=== PATIENT | male | born 1985 | race Hispanic/Latino ===

== ENCOUNTER 2024-03-05 14:07 | Emergency (ER) | payer BC, SELFPAY ==
--- NOTE | ~2024-03-05 | CT_ITS ---
History: Left-sided facial droop, progressing over the last 2 days PROCEDURE: CT head without contrast. COMPARISON: None TECHNIQUE: Axial imaging of the head performed from the skull base to the vertex without IV contrast. Sagittal a nd coronal reformations obtained. DLP: 605 mGy-cm FINDINGS: The ventricles are normal in size, shape and position. There is no mass, mass effect or midline shift. There is no abnormal extra-axial fluid collection or intracranial hemorrhage. Visualized paranasal sinuses are clear. The mastoid air cells are well aerated. No acute displaced fractures within the overlying cranium. Impression: No acute intracranial hemorrhage or suspicious mass effect. Reviewed, dictated and finalized at location A. RACT PREPARER Impression: No acute intracranial hemorrhage or suspicious mass effect.
[2024-03-05 14:15] VITALS: BP 142/88; PULSE 91; RESP 17; TEMP 36.4; O2SAT 98
--- NOTE | 2024-03-05 14:26 | ECG_ITS ---
Test Date: 2024-03-05 18:54:46 Measurements Intervals [place] Rate: 70 P: 37 IA: 124 QRS: 6 QRSD: 87 T: 42 QT: 377 QTc: 408 Interpretive Statements SINUS RHYTHM No previous ECG available for comparison Electronically Signed On 03-06-2024 21:55:15 MANAGER ROOFING by Cristhian Bustos M.D.
--- NOTE | 2024-03-05 14:27 | ED.GENADULT ---
HPI - General Adult General Chief complaint: Unspecified <Monica Mckenzie PA-C - Last Filed: 03/05/24 22:43> Stated complaint: headache <Monica Mckenzie PA-C - Last Filed: 03/05/24 22:43> Time Seen by Provider: 03/05/24 14:27 <Monica Mckenzie PA-C - Last Filed: 03/05/24 22:43> Focused HPI: This is a 38-year-old male that presents to the emergency department for left-sided facial droop. Reports symptoms that have been progressing over the last 2 days. Initially he noted some pain behind the left ear, then he noted that he was having difficulty with weakness on the left side of his mouth. He is also noted that his taste is abnormal. He is having difficulty closing the left eye. He was initially seen at urgent care and sent to the ER for further evaluation. GENERAL: Well-appearing, well-nourished, and in no acute distress. HEAD: Normocephalic, atraumatic. CHEST: Clear to auscultation. ?No respiratory distress. HEART: Regular rate and rhythm.? NEURO: ?Alert and oriented x3. Left-sided facial droop. Patient able to raise the left eyebrow, but not as well as the right Patient screened in triage and initial orders placed.? ?Additional care and disposition to be based upon?diagnostic testing and treatment. <Monica Mckenzie PA-C - Last Filed: 03/05/24 22:43> Focused HPI: This is a 38-year-old male that presents to the emergency department for left-sided facial droop. Reports symptoms that have been progressing over the last 2 days. Initially he noted some pain behind the left ear, then he noted that he was having difficulty with weakness on the left side of his mouth. He is also noted that his taste is abnormal. He is having difficulty closing the left eye. He was initially seen at urgent care and sent to the ER for further evaluation. GENERAL: Well-appearing, well-nourished, and in no acute distress. HEAD: Normocephalic, atraumatic. CHEST: Clear to auscultation. ?No respiratory distress. HEART: Regular rate and rhythm.? NEURO: ?Alert and oriented x3. Left-sided facial droop. Patient screened in triage and initial orders placed.? ?Additional care and disposition to be based upon?diagnostic testing and treatment. Agree and triage assessment. Patient has some movement of the left forehead region although diminished compared to the right side. 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 <Dharmesh Dee MD - Last Filed: 03/05/24 22:54> Related Data Allergies/adverse reactions: Allergies Allergy/AdvReac Type Severity Reaction Status Date / Time No Known Allergies Allergy Verified 03/05/24 14:11 <Monica Mckenzie PA-C - Last Filed: 03/05/24 22:43> Review of Systems Review of Systems: All systems are reviewed and are negative unless stated otherwise in the HPI. <Dharmesh Dee MD - Last Filed: 03/05/24 22:54> PMFSH Past Medical History Medical History: Medical History (Updated 03/05/24 @ 22:40 by Monica Mckenzie PA-C) No active medical problems <Monica Mckenzie PA-C - Last Filed: 03/05/24 22:43> Social History Social History: Social History (Updated 03/05/24 @ 22:41 by Monica Mckenzie PA-C) Substance use: never <Monica Mckenzie PA-C - Last Filed: 03/05/24 22:43> Exam Narrative: General: Alert, awake, afebrile, in no acute distress. HEENT: PERRL, no rhinorrhea, no post nasal drip, oropharynx clear. Neck: Trachea midline, no JVD, no lymphadenopathy. Cardiovascular: Regular rate and rhythm, no murmurs, rubs or gallops, no peripheral edema. Respiratory: Clear to auscultation bilaterally, no tachypnea, no wheezing, no rhonchi, no rubs, no respiratory distress. Abdomen: Soft, nontender, nondistended, no rebound, no guarding, no peritoneal signs. Musculoskeletal: No joint swelling or deformity, normal muscle tone. Skin: No rashes or petechia, no signs of infection. Psychiatric: Alert and oriented, normal behavior and judgment for situation. Neurological: Alert and oriented to person, place, and time. Follows all commands. Left-sided facial droop, patient does have some movement of his left forehead but diminished in comparison to the right side, intact and equal sensation in the bilateral cranial nerve 5 V1 through V3 distribution, and technical sensation in the bilateral upper and lower extremity, 5/5 motor strength in the bilateral upper and lower extremity, speech clear and fluent, gait intact and normal. <Dharmesh Dee MD - Last Filed: 03/05/24 22:54> Course Vital Signs Vital signs: Vital Signs Temperature 97.6 F 03/05/24 14:15 Pulse Rate 91 03/05/24 14:15 Respiratory Rate 17 03/05/24 14:15 Blood Pressure 142/88 H 03/05/24 14:15 Pulse Oximetry 98 03/05/24 14:15 Temperature 97.7 F 03/05/24 18:57 Pulse Rate 77 03/05/24 19:54 Respiratory Rate 20 03/05/24 19:54 Blood Pressure 127/93 H 03/05/24 19:54 Pulse Oximetry 94 03/05/24 19:54 <Monica Mckenzie PA-C - Last Filed: 03/05/24 22:43> Vital Signs Temperature 97.6 F 03/05/24 14:15 Pulse Rate 91 03/05/24 14:15 Respiratory Rate 17 03/05/24 14:15 Blood Pressure 142/88 H 03/05/24 14:15 Pulse Oximetry 98 03/05/24 14:15 Temperature 97.7 F 03/05/24 18:57 Pulse Rate 77 03/05/24 19:54 Respiratory Rate 20 03/05/24 19:54 Blood Pressure 127/93 H 03/05/24 19:54 Pulse Oximetry 94 03/05/24 19:54 <Dharmesh Dee MD - Last Filed: 03/05/24 22:54> Medical Decision Making MDM Narrative Medical decision making narrative: The patient was evaluated by myself in the emergency department. History is obtained from patient who is an independent historian and physical exam was performed. External medical records were reviewed at this time. IV was established and pertinent tests were ordered. Patient was administered 1 g of oral acyclovir and 60 mg of oral prednisone at this time for left-sided Nunez's palsy. Imaging studies obtained included CT brain without IV contrast which was independently interpreted by me revealing no acute intracranial process, which is pending final radiology interpretation. Differential diagnosis considerations include Nunez's palsy, CVA, trigeminal neuralgia. Comorbidities impacting this visit include history of HSV 1. I have evaluated and discussed social determinants of health with the patient that could potentially impact subsequent diagnosis and treatment plans. On repeat assessment of the patient, reevaluation revealed that the patient is doing well and is in no acute distress. Patient symptoms have improved since [he/she] arrived to our emergency department. Repeat vital signs were all reviewed and noted to be stable. Differential diagnosis and treatment plan were discussed with the patient at bedside. Patient agrees with discussion and after shared medical decision making agrees with discharge. All questions were answered to the patient's satisfaction. Patient will follow up with his PCP in 3-5 days. Patient was provided with strict return precautions and instructed to return to the emergency department if any new or worsening symptoms develop. Script for prednisone and valacyclovir were sent to patient's pharmacy to take as prescribed as well as instructions for cornea/eye protection. The patient was discharged in stable condition. <Dharmesh Dee MD - Last Filed: 03/05/24 22:54> Vital Signs Vital Signs: Vital Signs Temperature 97.6 F 03/05/24 14:15 Pulse Rate 91 03/05/24 14:15 Respiratory Rate 17 03/05/24 14:15 Blood Pressure 142/88 H 03/05/24 14:15 Pulse Oximetry 98 03/05/24 14:15 Temperature 97.7 F 03/05/24 18:57 Pulse Rate 77 03/05/24 19:54 Respiratory Rate 20 03/05/24 19:54 Blood Pressure 127/93 H 03/05/24 19:54 Pulse Oximetry 94 03/05/24 19:54 <Monica Mckenzie PA-C - Last Filed: 03/05/24 22:43> Vital Signs Temperature 97.6 F 03/05/24 14:15 Pulse Rate 91 03/05/24 14:15 Respiratory Rate 17 03/05/24 14:15 Blood Pressure 142/88 H 03/05/24 14:15 Pulse Oximetry 98 03/05/24 14:15 Temperature 97.7 F 03/05/24 18:57 Pulse Rate 77 03/05/24 19:54 Respiratory Rate 20 03/05/24 19:54 Blood Pressure 127/93 H 03/05/24 19:54 Pulse Oximetry 94 03/05/24 19:54 <Dharmesh Dee MD - Last Filed: 03/05/24 22:54> Lab Data Result diagrams: 03/05/24 19:07 03/05/24 19:07 <Monica Mckenzie PA-C - Last Filed: 03/05/24 22:43> Labs: Lab Results 03/05/24 03/05/24 Range/Units 18:56 19:07 WBC 11.5 H (4.5-10.0) K/mm3 RBC 5.04 (4.6-6.20) M/mm3 Hgb 13.7 L (14.0-18.0) g/dL Hct 40.6 L (42.0-52.0) % MCV 80.6 (80-100) fl MCH 27.2 (26-34) pg MCHC 33.7 (32-36) g/dl RDW 12.0 (11.5-14.5) % Plt Count 348 (150-375) k/mm3 MPV 9.9 (7.4-10.4) fl Immature Gran % (Auto) 0.3 (0-0.5) % Neut % (Auto) 59.8 (45.5-73.1) % Lymph % (Auto) 31.4 (18.3-44.2) % [place] % (Auto) 7.0 (2.6-8.5) % Eos % (Auto) 0.8 (0-4.4) % Baso % (Auto) 0.7 (0.2-1.2) % Lymph # (Auto) 3.62 H (0.9-3.2) K/mm3 [place] # (Auto) 0.8 H (0.1-0.6) K/mm3 Eos # (Auto) 0.1 (0-0.3) K/mm3 Baso # (Auto) 0.1 (0.0-0.1) K/mm3 Abs Immat Gran (auto) 0.04 H (0.00-0.031) K/mm3 Absolute Neuts (auto) 6.9 H (1.3-6.7) K/mm3 Absolute Nucleated RBC 0.000 (0.0-0.012) K/mm3 Nucleated RBC % 0.0 (0.0-0.2) % PT 14.0 (11.1-14.7) Seconds INR 1.1 APTT 30.7 (22.3-36.8) Seconds Sodium 141 (137-145) mmol/L Potassium 3.9 (3.4-5.0) mmol/L Chloride 108 H (98-107) mmol/L Carbon Dioxide 28 (22-30) mmol/L Anion Gap 5 (4-12) mmol/L BUN 11 (9-20) mg/dL Creatinine 0.80 (0.7-1.3) mg/dL Estim Creat Clear Calc 103 ml/min Estimated GFR > 60 (59 - ) Glucose 87 (65-110) mg/dL POC Capillary Glucose 85 (65-105) mg/dl Calcium 8.5 (8.4-10.2) mg/dL Total Bilirubin 0.8 (0.2-1.3) mg/dL AST 27 (17-59) U/L ALT 34 (6-50) U/L Alkaline Phosphatase 87 (38-126) U/L Troponin I < 0.012 (0.000-0.034) ng/mL Total Protein 7.0 (6.3-8.2) g/dL Albumin 4.0 (3.5-5.1) g/dL <Monica Mckenzie PA-C - Last Filed: 03/05/24 22:43> Lab Results 03/05/24 03/05/24 Range/Units 18:56 19:07 WBC 11.5 H (4.5-10.0) K/mm3 RBC 5.04 (4.6-6.20) M/mm3 Hgb 13.7 L (14.0-18.0) g/dL Hct 40.6 L (42.0-52.0) % MCV 80.6 (80-100) fl MCH 27.2 (26-34) pg MCHC 33.7 (32-36) g/dl RDW 12.0 (11.5-14.5) % Plt Count 348 (150-375) k/mm3 MPV 9.9 (7.4-10.4) fl Immature Gran % (Auto) 0.3 (0-0.5) % Neut % (Auto) 59.8 (45.5-73.1) % Lymph % (Auto) 31.4 (18.3-44.2) % [place] % (Auto) 7.0 (2.6-8.5) % Eos % (Auto) 0.8 (0-4.4) % Baso % (Auto) 0.7 (0.2-1.2) % Lymph # (Auto) 3.62 H (0.9-3.2) K/mm3 [place] # (Auto) 0.8 H (0.1-0.6) K/mm3 Eos # (Auto) 0.1 (0-0.3) K/mm3 Baso # (Auto) 0.1 (0.0-0.1) K/mm3 Abs Immat Gran (auto) 0.04 H (0.00-0.031) K/mm3 Absolute Neuts (auto) 6.9 H (1.3-6.7) K/mm3 Absolute Nucleated RBC 0.000 (0.0-0.012) K/mm3 Nucleated RBC % 0.0 (0.0-0.2) % PT 14.0 (11.1-14.7) Seconds INR 1.1 APTT 30.7 (22.3-36.8) Seconds Sodium 141 (137-145) mmol/L Potassium 3.9 (3.4-5.0) mmol/L Chloride 108 H (98-107) mmol/L Carbon Dioxide 28 (22-30) mmol/L Anion Gap 5 (4-12) mmol/L BUN 11 (9-20) mg/dL Creatinine 0.80 (0.7-1.3) mg/dL Estim Creat Clear Calc 103 ml/min Estimated GFR > 60 (59 - ) Glucose 87 (65-110) mg/dL POC Capillary Glucose 85 (65-105) mg/dl Calcium 8.5 (8.4-10.2) mg/dL Total Bilirubin 0.8 (0.2-1.3) mg/dL AST 27 (17-59) U/L ALT 34 (6-50) U/L Alkaline Phosphatase 87 (38-126) U/L Troponin I < 0.012 (0.000-0.034) ng/mL Total Protein 7.0 (6.3-8.2) g/dL Albumin 4.0 (3.5-5.1) g/dL <Dharmesh Dee MD - Last Filed: 03/05/24 22:54> Imaging Data Radiologist's impression: ITS Impressions Head CT 03/05/24 15:36 Impression: No acute intracranial hemorrhage or suspicious mass effect. <Monica Mckenzie PA-C - Last Filed: 03/05/24 22:43> Critical Care Time Critical Care Time Critical Care Time: No <Monica Mckenzie PA-C - Last Filed: 03/05/24 22:43> Discharge Plan Discharge Clinical Impression: Nunez's palsy <Monica Mckenzie PA-C - Last Filed: 03/05/24 22:43> Patient Disposition: Home, Self-Care <Monica Mckenzie PA-C - Last Filed: 03/05/24 22:43> Condition: Stable <Monica Mckenzie PA-C - Last Filed: 03/05/24 22:43> Instructions: Antibiotic Form <Monica Mckenzie PA-C - Last Filed: 03/05/24 22:43> Additional Instructions: Please follow-up with your family doctor within the next 3-5 days. Take prescribed medications as instructed and return to the ED if any new or worsening symptoms develop. Please follow the eye protection instructions below. Cornea eye protection: Artificial tears qhr while patient is awake Ophthalmic ointment at night Eye should be taped shut at night Protective glasses or goggles <Monica Mckenzie PA-C - Last Filed: 03/05/24 22:43> Patient Language: Portuguese <Monica Mckenzie PA-C - Last Filed: 03/05/24 22:43> Prescriptions: New prednisone 20 mg tablet 60 mg PO DAILY 6 Days Qty: 18 0RF valacyclovir 1 gram tablet 1,000 mg PO Q8H 7 Days Qty: 21 0RF <Monica Mckenzie PA-C - Last Filed: 03/05/24 22:43> Follow-up/Referrals: PHYSICIAN,ACCOUNTING BOOKKEEPER [Primary Care Provider] - Anish Oliva MD [Physician] - 3 Days <Monica Mckenzie PA-C - Last Filed: 03/05/24 22:43> Time of Disposition: 19:31 <Monica Mckenzie PA-C - Last Filed: 03/05/24 22:43> 19:31 <Dharmesh Dee MD - Last Filed: 03/05/24 22:54>
[2024-03-05 18:57] VITALS: BP 131/87; PULSE 71; RESP 18; TEMP 36.5; O2SAT 97
[2024-03-05 19:01] VITALS: PULSE 84
[2024-03-05 19:05] LABS: Glucose Point of Care 85 mg/dl (65-105)
[2024-03-05 19:12] LABS: Basophils Absolute Auto 0.1 K/mm3 (0.0-0.1); Basophils Percent Auto 0.7 % (0.2-1.2); Eosinophils Absolute Auto 0.1 K/mm3 (0-0.3); Eosinophils Percent Auto 0.8 % (0-4.4); Hematocrit 40.6 % (42.0-52.0); Hemoglobin 13.7 g/dL (14.0-18.0); Immature Granulocyte Absolute 0.04 K/mm3 (0.00-0.031); Immature Granulocyte Percent A 0.3 % (0-0.5); Lymphocytes Absolute Auto 3.62 K/mm3 (0.9-3.2); Lymphocytes Percent Auto 31.4 % (18.3-44.2); Mean Corpuscular HGB Conc 33.7 g/dl (32-36); Mean Corpuscular Hemoglobin 27.2 pg (26-34); Mean Corpuscular Volume 80.6 fl (80-100); Mean Platelet Volume 9.9 fl (7.4-10.4); Monocytes Absolute Auto 0.8 K/mm3 (0.1-0.6); Neutrophils Absolute Auto 6.9 K/mm3 (1.3-6.7); Neutrophils Percent Auto 59.8 % (45.5-73.1); Platelet Count Result 348 k/mm3 (150-375); Red Blood Count 5.04 M/mm3 (4.6-6.20); White Blood Count 11.5 K/mm3 (4.5-10.0)
[2024-03-05 19:23] LABS: Alanine Aminotransferase 34 U/L (6-50); Alkaline Phosphatase 87 U/L (38-126); Anion Gap 5 mmol/L (4-12); Aspartate Amino Transferase 27 U/L (17-59); Bilirubin,Total 0.8 mg/dL (0.2-1.3); Blood Urea Nitrogen 11 mg/dL (9-20); Calcium 8.5 mg/dL (8.4-10.2); Carbon Dioxide 28 mmol/L (22-30); Chloride 108 mmol/L (98-107); Estimated CRCL calculation 103 ml/min; Estimated Glomerular Filt Rate > 60; Glucose 87 mg/dL (65-110); INR 1.1; Potassium 3.9 mmol/L (3.4-5.0); Sodium 141 mmol/L (137-145)
[2024-03-05 19:24] LABS: Partial Thromboplastin Time 30.7 Seconds (22.3-36.8)
[2024-03-05 19:36] LABS: Troponin I < 0.012 ng/mL (0.000-0.034)
[2024-03-05 19:54] VITALS: BP 127/93; PULSE 77; RESP 20; O2SAT 94
[2024-03-05] MEDS: valACYclovir HCL 500 MG TABLET 1000 MG PO (19:54)
[2024-03-05] MEDS: predniSONE 20 MG TABLET 60 MG PO (19:54)
== END 2024-03-05 19:56 | disposition home or self-care (01) ==
PROVIDERS: Physician Assistant; Emergency Provider Emergency Medicine
DX: G51.0 Bell's palsy (principal)
CPT/HCPCS: 36415; 70450; 80053; 82948; 84484; 85025; 85610; 85730; 93005; 99284; A9270; J7512